=== PATIENT | female | born 1985 | race Caucasian/White ===

== ENCOUNTER 2018-01-19 20:08 | Emergency (ER) | payer BC ==
[2018-01-19 20:28] VITALS: BP 108/86; PULSE 97; RESP 16; TEMP 97.2; O2SAT 95
--- NOTE | 2018-01-19 20:39 | EDPHY ---
H & P Time Seen by Provider: 01/19/18 20:30 HPI/ROS: Chief complaint: Left 5th finger injury History of present illness: This is a 32-year-old female who presents to the emergency department for a left 5th finger injury. She was sparring when she jammed the finger. Since then she has had pain in the finger. She cannot bend the left 5th finger at the distal joint. Initially she had numbness although that has resolved. No open wounds. No abnormal coolness. No other injuries Smoking Status: Never smoked Physical Exam: General: Alert, nontoxic Skin: No open wounds to the left 5th finger. Musculoskeletal: Deformity at the DIP joint a left 5th finger. She cannot flex his finger. She is moving the PIP and MCP joint well. Vascular: Capillary refill brisk in the left 5th finger. Neurologic: Sensation intact throughout the left 5th finger. Constitutional: Initial Vital Signs Temperature (C) 36.2 C 01/19/18 20:25 Heart Rate 97 01/19/18 20:25 Respiratory Rate 16 01/19/18 20:25 Blood Pressure 108/86 H 01/19/18 20:25 O2 Sat (%) 95 01/19/18 20:25 O2 Delivery Mode Room Air Allergies/Adverse Reactions: No Known Allergies Allergy (Unverified 01/19/18 20:25) Home Medications: Medication Instructions Recorded Control 01/19/18 MDM/Departure - MDM Imaging Results: Imaging Impressions Finger X-Ray 01/19/18 20:28 Impression: Dislocated left fifth finger DIP joint. Finger X-Ray 01/19/18 20:43 Impression: Negative radiographs of the left fifth finger. There has been reduction in the DIP joint dislocation. Imaging: I viewed and interpreted images myself Procedures: Patient offered anesthesia of the left 5th finger with a digital block, she declined. Procedure: Dislocation reduction. The dislocation of the DIP joint of the left 5th finger was reduced using traction technique without complications. Post reduction the patient's neurovascular exam is normal. Post reduction x-ray demonstrates reduction of the joint to the anatomic position. The procedure was performed by myself. Procedure: Splint placement. A finger splint was applied. After application of the splint I returned and re- examined the patient. The splint was adequately immobilizing the joint and distal to the splint the patient's circulation and sensation was intact. ED Course/Re-evaluation: Patient is seen under the supervision of my secondary supervising physician Dr. Humberto Garcia. Patient presents for a left 5th finger injury. She has a DIP joint dislocation that has been reduced. She remains neurovascularly intact. She is splinted. Home care is discussed. She is referred to Hand surgery for recheck. Return precautions are given. Differential Diagnosis: Included but not limited to contusion, sprain or strain, bony fracture, joint dislocation - Depart Disposition: Home, Routine, Self-Care Clinical Impression: Finger dislocation Qualifiers: Encounter type: initial encounter Qualified Code(s): S63.259A - Unspecified dislocation of unspecified finger, initial encounter Condition: Good Instructions: Finger Dislocation (ED) Additional Instructions: Follow-up with a hand doctor for recheck Use ibuprofen 600 mg 3 times a day for the next 2-3 days for symptom control If symptoms worsen or new symptoms develop return to the emergency room for recheck Referrals: Afua Taylor MD [Medical Doctor] - As per Instructions
== END 2018-01-19 20:50 | disposition home or self-care (01) ==
PROC: 0RSXXZZ Reposition Left Finger Phalangeal Joint, External Approach (ICD-10-PCS; principal; 2018-01-19)
DX: S63.297A Dislocation of distal interphalangeal joint of left little finger, initial encounter (principal); W23.1XXA Caught, crushed, jammed, or pinched between stationary objects, initial encounter
CPT/HCPCS: L3925